=== PATIENT | female | born 2000 | race Caucasian/White ===

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

== ENCOUNTER 2019-03-25 21:17 | Emergency (ER) | payer SELFPAY ==
--- NOTE | 2019-03-25 22:53 | ED Physician Documentation ---
Upper Extremity Problem - HISTORIAN Historian: patient, parent - HPI Chief Complaint: Upper Extremity Injury Additional Information: rt hand swung into steel jigna yest w/ trauma swelling rt 5th metacarpal Timing: still present, worse Duration: sudden-Onset Where: home Severity: mild, moderate Exacerbated By: change in position Quality: pain, swelling Further Comments: yes - ROS CONST: no problems EYES/ENT: none CVS/RESP: none GI/: none NEURO/PSYCH: denies: headache - PAST HX Past History: other (asthma) Surgeries/Procedures: none Allergies/Adverse Reactions: Allergies Allergy/AdvReac Type Severity Reaction Status Date / Time aspirin Allergy Verified 06/18/19 12:03 bismuth subsalicylate Allergy Verified 06/18/19 12:03 [From Pepto-Bismol] Home Medications: Ambulatory Orders Medication Instructions Recorded NK 11/17/18 - SOCIAL HX Smoking History: cigarettes Alcohol Use: none Drug Use: none - FAMILY HX Family History: no significant history - VITAL SIGNS Vital Signs: Vital Signs Temp Pulse Resp BP Pulse Ox 109/65 03/26/19 00:42 - REVIEWED ASSESSMENTS Nursing Assessment Reviewed: Yes Vitals Reviewed: Yes ED Results Lab/Radiology - Lab Results Lab Results: Lab Results 03/25/19 23:04 Urine HCG, Qual Negative (NEGATIVE) - Orders Orders: ED Orders Category Date Time Status HAND 3 VIEWS OR MORE [RAD] Stat Exams 03/25/19 Completed URINE HCG Routine Lab 03/25/19 23:04 Completed Upper Extremity Problem - EXAM General Appearance: mild distress Skin: warm/dry, normal color (slight eccymosis) Shoulder Exam: normal inspection Elbow/Forearm Exam: normal inspection Wrist Exam: normal inspection CVS: reg rate & rhythm, heart sounds normal Vascular: no vascular compromise Peripheral: sensation nml, motor nml Central: oriented X3 Respiratory: no resp. distress Abdomen: non-tender Discharge Clincal Impression: contusion sprain hand Referrals: Primary Doctor,No [Primary Care Provider] - 2 Days Additional Instructions: f/u w/pcp as needed Condition: Good Disposition: 01 HOME, SELF-CARE Decision to Admit: NO Decision Time: 16:17
--- NOTE | 2019-03-25 23:23 | Diagnostic Imaging Report ---
KARYN BARAJAS [facility] [address] [facility].[address] [address] Report Submission Date: Mar 25, 2019 11:20:13 PM CDT Patient Study Name: FREEDOM LOONEY Date: Mar 25, 2019 10:58:37 PM CDT Modality Type: DX Gender: F Description: HAND 3 VIEWS OR MORE : 99 Institution: [facility] Physician: KARYN BARAJAS Three views of the right hand Clinical history: Injury. Pain in the 5th metacarpal. Findings: Examination right hand in palmar, lateral and oblique views fails to demonstrate evidence of fracture, dislocation or other bone or joint pathology. Electronically signed on Mar 25, 2019 11:20:13 PM CDT by: Jean-Claude ALMENDAREZ
== END 2019-03-26 00:44 | disposition home or self-care (01) ==
LOC: ED 21:17
DX: S60.211A Contusion of right wrist, initial encounter (principal); W22.8XXA Striking against or struck by other objects, initial encounter
CPT/HCPCS: 73130; 81025; 99282

== ENCOUNTER 2019-06-18 11:05 | Emergency (ER) | payer SELFPAY ==
--- NOTE | 2019-06-18 11:30 | ED Physician Documentation ---
Lower Extremity Injury - HISTORIAN Historian: patient - HPI Chief Complaint: Lower Extremity Injury Additional Information: Patient is a 18-year-old female who presents to the ER ambulatory with c/o left knee injury. States that she was pulled by her dog down some wooden stairs. She c/o left knee-medial discomfort; she has abrasions to the right knee but denies pain with ambulation. She denies head injury or LOC. Incident occurred around 17:00 last night and she took Tylenol at HS but pain persists this morning. Onset: days ago (yesterday at 17:00) Where: home Severity: mild Context: fall Associated Symptoms:: other (pain with ambulation) Modifying Factors:: pain on movement - ROS CONST: no problems CVS/RESP: none GI/: denies: nausea, vomiting MS/SKIN/LYMPH: none NEURO: denies: head injury - PAST HX Past History: other (asthma) Immunizations: UTD Allergies/Adverse Reactions: Allergies Allergy/AdvReac Type Severity Reaction Status Date / Time aspirin Allergy Verified 06/18/19 12:03 bismuth subsalicylate Allergy Verified 06/18/19 12:03 [From Pepto-Bismol] Home Medications: Ambulatory Orders Medication Instructions Recorded NK 11/17/18 - SOCIAL HX Smoking History: greater than 1 pack/day Alcohol Use: none Drug Use: none - FAMILY HX Family History: none - VITAL SIGNS Vital Signs: Vital Signs Temp Pulse Resp BP Pulse Ox 98.2 F 87 16 112/68 100 06/18/19 11:06 06/18/19 11:06 06/18/19 11:06 06/18/19 11:06 06/18/19 11:06 - REVIEWED ASSESSMENTS Nursing Assessment Reviewed: Yes Vitals Reviewed: Yes ED Results Lab/Radiology - Radiology Radiology Impressions: Left knee, 3 views History:, pain Findings: The osseous, joint and soft tissue structures are normal. Impression: Normal. - Orders Orders: ED Orders Category Date Time Status Mick Wrap Affected Extremity 1T Care 06/18/19 12:11 Ordered KNEE 3 VIEWS [RAD] Stat Exams 06/18/19 Taken URINE HCG Stat Lab 06/18/19 11:59 Ordered Lower Extremities Injury Phy - Physical Exam General Appearance: no acute distress, alert Hips: bilateral hip: non-tender Legs: bilateral: non-tender Knees: right: normal range of motion, other (abrasions to the right knee), left: pain, soft tissue tenderness Ankle: bilateral: non-tender, normal inspection Foot: bilateral foot: non-tender, normal inspection Ligaments: other (normal assessment) Gait: other (ambulatory- tenderness) Neuro/Vascular/Tendon: no vascular compromise, motor nml, sensation nml Head/ENT: nml inspection Neck/Back: nml inspection Resp/CVS: breath sounds nml, heart sounds nml Discharge Clincal Impression: Contusion of left knee, Abrasion of right knee Referrals: Primary Doctor,No [Primary Care Provider] - 2 Days Additional Instructions: Rest, Ice, Elevate, wear mick wrap for support May alternate Tylenol and Ibuprofen as needed for discomfort Follow up with PCP next week for re-evaluation Patient requesting crutches- script given Condition: Good Disposition: 01 HOME, SELF-CARE Decision to Admit: NO Decision Time: 12:16
[2019-06-18 12:03] VITALS: BP 112/68
--- NOTE | 2019-06-18 12:10 | Diagnostic Imaging Report ---
LOS JACQUES [facility] [address] [facility].[address] [address] Report Submission Date: Jun 18, 2019 12:09:18 PM CDT Patient Study Name: FREEDOM LOONEY Date: Jun 18, 2019 11:48:34 AM CDT Modality Type: DX Gender: F Description: KNEE 3 VIEWS : 99 Institution: [facility] Physician: LOS JACQUES Left knee, 3 views History:, pain Findings: The osseous, joint and soft tissue structures are normal. Impression: Normal. Electronically signed on Jun 18, 2019 12:09:18 PM CDT by: Igor ALMENDAREZ
== END 2019-06-18 12:19 | disposition home or self-care (01) ==
LOC: ED 11:05
DX: S80.02XA Contusion of left knee, initial encounter (principal); W10.9XXA Fall (on) (from) unspecified stairs and steps, initial encounter
CPT/HCPCS: 73562; 81025; 99283